=== PATIENT | female | born 1980 | race Caucasian/White ===

== ENCOUNTER 2021-06-10 21:16 | Emergency (ER) | payer SELFPAY ==
[2021-06-10 21:50] VITALS: BP 116/67; PULSE 98; RESP 18; TEMP 38.1; O2SAT 97
[2021-06-10 22:29] LABS: COVID19 -Nasal RAPID Negative (Negative)
[2021-06-10 23:13] LABS: Add Manual Diff / Slide Review NO; Basophils Absolute Auto 0 /uL (0-100); Basophils Percent Auto 0.2 % (0-2); Eosinophils Absolute Auto 0 /uL (0-450); Eosinophils Percent Auto 0.1 % (2-4); Hematocrit 37.8 % (36-46); Hemoglobin 12.8 g/dL (12.0-16.0); Lymphocytes Absolute Auto 600 /uL (1100-4500); Mean Corpuscular HGB Conc 33.7 % (30-36); Mean Corpuscular Hemoglobin 31.5 PG (26-34); Mean Corpuscular Volume 93.3 fL (80-100); Monocytes Absolute Auto 700 /uL (0-900); Monocytes Percent Auto 7.3 % (3-14); Neutrophils Absolute Auto 8100 /uL (1500-7000); Neutrophils Percent Auto 86.4 % (50-75); Platelet Count 236 X10^3/uL (150-400); Red Blood Cell Count 4.05 X10^6/uL (4.0-5.2); Red Cell Distribution Width 13.1 % (11.6-14.8); White Blood Cell Count 9.3 X10^3/uL (4.5-11.0)
[2021-06-10 23:21] LABS: Alanine Aminotransferase 24 IU/L (<35); Albumin 4.4 g/dL (3.5-5.0); Albumin Globulin Ratio 1.3 (1.0-2.8); Alkaline Phosphatase 50 U/L (38-126); BUN Creatinine Ratio 8.6 (6-22); Bilirubin Total 0.7 mg/dL (0.2-1.3); Blood Urea Nitrogen 6 mg/dL (7-17); Calcium 8.9 mg/dL (8.4-10.2); Carbon Dioxide 20 mmol/L (22-32); Chloride 105 mmol/L (98-107); Estimated Glomerular Filt Rate > 60.0 mL/min (>60); Globulin 3.5 g/dL (1.7-4.1); Glucose 115 mg/dL (70-100); Lipase 26 U/L (23-300); Sodium 134 mmol/L (137-145); Total Protein 7.9 g/dL (6.3-8.2)
[2021-06-10 23:27] LABS: HEMOLYSIS 64 (0-50)
[2021-06-10 23:28] LABS: Aspartate Aminotransferase 37 IU/L (14-36); Potassium 4.1 mmol/L (3.4-5.1)
--- NOTE | 2021-06-11 00:14 | ED.ABDPAIN ---
HPI - Abdominal Pain General Chief Complaint: Abdominal Pain Stated Complaint: intestinal pain, had possible ulcer Time Seen by Provider: 06/10/21 23:18 Source: patient Mode of arrival: Ambulatory History of Present Illness HPI narrative: Patient is a 41-year-old female currently not for COVID presenting with diarrhea and nausea. She has been having ongoing abdominal pain she thought to have an ulcer by her primary care provider she was put on Prilosec. However over the last 2-3 days she has had multiple episodes of nonbloody diarrhea. She has been dry heaving unable to keep any liquids down and diffuse abdominal pain. She currently has a low-grade fever. She denies any chest pain shortness of breath or cough. She states no one else is sick. Related Data Previous Rx's Medication Instructions Recorded ondansetron 4 mg disintegrating 4 mg PO Q8H PRN #20 tab 06/11/21 tablet Allergies Allergy/AdvReac Type Severity Reaction Status Date / Time No Known Drug Allergies Allergy Verified 06/11/21 00:32 Review of Systems Review of Systems Narrative: GENERAL: + fever,+ weakness, see HPI HEENT: Denies sinus pain, ear pain, sore throat, difficulty swallowing, neck pain RESPIRATORY: Denies dyspnea, cough, wheezing, hemoptysis, sputum. CARDIOVASCULAR: Denies chest pain, palpitations, orthopnea, edema GASTROINTESTINAL: See HPI : Denies dysuria, frequency, incontinence, hematuria, urinary retention, flank pain. MUSCULOSKELETAL: Denies weakness, joint pain, or bony pain SKIN: No rash, no erythema, no pruritus NEUROLOGIC: Denies weakness, dizziness, headache, numbness, change in speech, confusion PSYCHIATRIC: No concerning psychosocial issues. 12 point review of systems is negative except for those stated above and HPI Patient History Social History Smoking Status: Current some day smoker Smoking Status: Current some day smoker Substance Use Type: does not use Exam Initial Vital Signs Initial Vital Signs: Vital Signs Temperature 100.5 F H 06/10/21 21:50 Pulse Rate 98 H 06/10/21 21:50 Respiratory Rate 18 06/10/21 21:50 Blood Pressure 116/67 06/10/21 21:50 Pulse Oximetry 97 06/10/21 21:50 GENERAL: Alert 41-year-old female appears to not feel well HEENT: Head atraumatic,EOMI, pupils reactive, face symmetric, [moist] mucous membranes CARDIOVASCULAR: Regular rate and rhythm without murmurs, rubs or gallops. RESPIRATORY: Breath sounds equal bilaterally, no wheezes rales or rhonchi. ABDOMEN: Soft, no tenderness no guarding no rebound not distended EXTREMITIES: Normal range of motion, no clubbing or edema. Neurovascularly intact NEUROLOGICAL: Alert and oriented x4.Normal gait and speech. SKIN: Warm, dry, no laceration, no petechiae, no rashes or lesions. Course Orders Ordered: ED Orders 06/10/21 22:00 COVID19 -Nasal swab/Pre-Proc Stat 06/10/21 22:59 EKG-12 Lead Stat 06/10/21 23:05 Complete Blood Count AUTO DIFF Stat Comprehensive Metabolic Panel Stat Lipase Stat 06/11/21 00:13 GI Panel (Film Array) Stat Discontinued Medications Acetaminophen (Acetaminophen 325 Mg Tablet) 650 mg PO NOW ONE Stop: 06/11/21 00:19 Last Admin: 06/11/21 00:34 Dose: 650 mg Documented by: FRACISCO Sodium Chloride (Normal Saline 0.9%) 1,000 mls @ 1,000 mls/hr IV BOLUS ONE Stop: 06/11/21 01:12 Last Infusion: 06/11/21 01:47 Dose: 0 mls/hr Documented by: Admin: 06/11/21 00:32 Dose: 1,000 mls/hr Documented by: FRACISCO Morphine Sulfate (Morphine 2 Mg/Ml Inj) 2 mg IV NOW ONE Stop: 06/11/21 00:14 Last Admin: 06/11/21 00:34 Dose: 2 mg Documented by: FRACISCO Ondansetron HCl (Ondansetron 4 Mg/2 Ml Inj) 4 mg IV NOW ONE Stop: 06/11/21 00:14 Last Admin: 06/11/21 00:34 Dose: 4 mg Documented by: FRACISCO Ondansetron HCl (Ondansetron 4 Mg Odt Prepack) 1 bottle MISC SEEINSTR ONE Stop: 06/11/21 02:03 Last Admin: 06/11/21 02:08 Dose: 1 bottle Documented by: FRACISCO Pantoprazole Sodium (Pantoprazole 40 Mg Vial) 40 mg IV NOW ONE Stop: 06/11/21 00:14 Last Admin: 06/11/21 00:35 Dose: 40 mg Documented by: FRACISCO Vital Signs Vital signs: Vital Signs - 8 hr 06/10/21 21:50 06/11/21 00:34 06/11/21 00:51 Temperature 100.5 F H 100.5 F H Pulse Rate 98 H 83 Respiratory Rate 18 18 Blood Pressure 116/67 97/52 L Pulse Oximetry 97 98 06/11/21 01:46 06/11/21 01:47 Temperature 99.2 F Pulse Rate 76 Respiratory Rate 18 Blood Pressure 94/53 L Pulse Oximetry 98 MDM - Abdominal Pain Lab Data Result diagrams: 06/10/21 23:05 06/10/21 23:05 Labs: Lab Results 06/10/21 06/10/21 06/10/21 Range/Units 22:00 23:05 23:05 WBC 9.3 (4.5-11.0) X10^3/uL RBC 4.05 (4.0-5.2) X10^6/uL Hgb 12.8 (12.0-16.0) g/dL Hct 37.8 (36-46) % MCV 93.3 (80-100) fL MCH 31.5 (26-34) PG MCHC 33.7 (30-36) % RDW 13.1 (11.6-14.8) % Plt Count 236 (150-400) X10^3/uL Neut % (Auto) 86.4 H (50-75) % Lymph % (Auto) 6.0 L (25-40) % [place] % (Auto) 7.3 (3-14) % Eos % (Auto) 0.1 L (2-4) % Baso % (Auto) 0.2 (0-2) % Neut # (Auto) 8100 H (9248-4632) /uL Lymph # (Auto) 600 L (5309-9534) /uL [place] # (Auto) 700 (0-900) /uL Eos # (Auto) 0 (0-450) /uL Baso # (Auto) 0 (0-100) /uL Sodium 134 L (137-145) mmol/L Potassium 4.1 (3.4-5.1) mmol/L Chloride 105 (98-107) mmol/L Carbon Dioxide 20 L (22-32) mmol/L BUN 6 L (7-17) mg/dL Creatinine 0.70 (0.52-1.04) mg/dL Estimated GFR > 60.0 (>60) mL/min BUN/Creatinine Ratio 8.6 (6-22) Glucose 115 H (70-100) mg/dL Calcium 8.9 (8.4-10.2) mg/dL Total Bilirubin 0.7 (0.2-1.3) mg/dL AST 37 H (14-36) IU/L ALT 24 (<35) IU/L Alkaline Phosphatase 50 (38-126) U/L Total Protein 7.9 (6.3-8.2) g/dL Albumin 4.4 (3.5-5.0) g/dL Globulin 3.5 (1.7-4.1) g/dL Albumin/Globulin Ratio 1.3 (1.0-2.8) Lipase 26 (23-300) U/L Stl C. cayetanensis PCR (Not Detect) Stool Rotavirus (PCR) (Not Detect) Stool Adenovirus (PCR) (Not Detect) Stool Astrovirus (PCR) (Not Detect) Stool Cryptosporidium PCR (Not Detect) Stl E.coli Shiga Tox PCR (Not Detect) St Sh/Enteroin Ecoli PCR (Not Detect) Stool E coli O157 PCR Stl Enterotoxigenic E PCR (Not Detect) Stool EPEC (PCR) (Not Detect) Stl E. histolytica PCR (Not Detect) Stool Giardia Lamblia PCR (Not Detect) Stool Sapovirus (PCR) (Not Detect) Stl P. shigelloides PCR (Not Detect) St Y.enterocolitica PCR (Not Detect) Stool Vibrio (PCR) (Not Detect) Stl Vibrio cholerae PCR (Not Detect) Stl Enteroaggr Ecoli PCR (Not Detect) Stl Norovirus GI/GII PCR (Not Detect) Campylobacter (PCR) (Not Detect) C. difficile Tox (PCR) (Not Detect) SARS-CoV-2 (PCR) Negative (Negative) Salmonella (PCR) (Not Detect) 06/10/21 Range/Units 23:35 WBC (4.5-11.0) X10^3/uL RBC (4.0-5.2) X10^6/uL Hgb (12.0-16.0) g/dL Hct (36-46) % MCV (80-100) fL MCH (26-34) PG MCHC (30-36) % RDW (11.6-14.8) % Plt Count (150-400) X10^3/uL Neut % (Auto) (50-75) % Lymph % (Auto) (25-40) % [place] % (Auto) (3-14) % Eos % (Auto) (2-4) % Baso % (Auto) (0-2) % Neut # (Auto) (1663-7436) /uL Lymph # (Auto) (0784-2700) /uL [place] # (Auto) (0-900) /uL Eos # (Auto) (0-450) /uL Baso # (Auto) (0-100) /uL Sodium (137-145) mmol/L Potassium (3.4-5.1) mmol/L Chloride (98-107) mmol/L Carbon Dioxide (22-32) mmol/L BUN (7-17) mg/dL Creatinine (0.52-1.04) mg/dL Estimated GFR (>60) mL/min BUN/Creatinine Ratio (6-22) Glucose (70-100) mg/dL Calcium (8.4-10.2) mg/dL Total Bilirubin (0.2-1.3) mg/dL AST (14-36) IU/L ALT (<35) IU/L Alkaline Phosphatase (38-126) U/L Total Protein (6.3-8.2) g/dL Albumin (3.5-5.0) g/dL Globulin (1.7-4.1) g/dL Albumin/Globulin Ratio (1.0-2.8) Lipase (23-300) U/L Stl C. cayetanensis PCR Not detected (Not Detect) Stool Rotavirus (PCR) Not detected (Not Detect) Stool Adenovirus (PCR) Not detected (Not Detect) Stool Astrovirus (PCR) Not detected (Not Detect) Stool Cryptosporidium PCR Not detected (Not Detect) Stl E.coli Shiga Tox PCR Not detected (Not Detect) St Sh/Enteroin Ecoli PCR Not detected (Not Detect) Stool E coli O157 PCR Not Reportable Stl Enterotoxigenic E PCR Not detected (Not Detect) Stool EPEC (PCR) Not detected (Not Detect) Stl E. histolytica PCR Not detected (Not Detect) Stool Giardia Lamblia PCR Not detected (Not Detect) Stool Sapovirus (PCR) Not detected (Not Detect) Stl P. shigelloides PCR Not detected (Not Detect) St Y.enterocolitica PCR Not detected (Not Detect) Stool Vibrio (PCR) Not detected (Not Detect) Stl Vibrio cholerae PCR Not detected (Not Detect) Stl Enteroaggr Ecoli PCR Not detected (Not Detect) Stl Norovirus GI/GII PCR Not detected (Not Detect) Campylobacter (PCR) Detected H (Not Detect) C. difficile Tox (PCR) Not detected (Not Detect) SARS-CoV-2 (PCR) (Negative) Salmonella (PCR) Not detected (Not Detect) Point of care testing: Point of Care Testing Test Results Negative Urine Dip Bedside Urine Glucose Negative Bedside Urine Bilirubin - Negative Bedside Urine Ketone - Negative Urine Specific [place] 1.005 Bedside Urine Occult Blood - Negative Bedside Urine pH 6.0 Bedside Urine Protein - Negative Bedside Urine Urobilinogen - Negative Bedside Urine Nitrite - Negative Bedside Urine Leukocytes - Negative Esterase MDM Narrative Medical decision making narrative: Patient has had numerous episodes of diarrhea. GI panel does confirm Campylobacter infection. Blood work is overall reassuring she is not significantly dehydrated no leukocytosis. His she is not immunocompromised no significant risk factors. Symptoms have been only ongoing for a few days with low-grade fever. His at this time recommend conservative treatment no antibiotics are indicated. Patient is overall feeling better after 1 L of fluid abdomen remains soft. Nurse discharged patient but does not inform me of low blood pressure. Blood pressure has slowly decreased during her stay. Initial blood pressure 116/67 then vitals are not taken for numerous hours next blood pressure is around 1:00 a.m. and 97/52 followed by 94/53. She did receive 1 dose of morphine 2 mg at around midnight. [place] stay and in [place]. I have discussed with her warning signs and when to return to the ED. I believe that she will follow up if needed. She was not dizzy lightheaded or symptomatic when I evaluated her just prior to discharge. Discharge Plan Departure Patient Disposition: Home Clinical Impression: Campylobacter diarrhea Instructions: Gastroenteritis Diet Activity Restrictions/Additional Instructions: You have been diagnosed with gastroenteritis, specifically Campylobacter This is usually self-limiting disease and you should start to improve. Recommend clear liquid diet which includes Gatorade or Gatorade like substance, broth, Jell-O, he may increase her diet as tolerated. You may take Zofran as prescribed to help with the nausea and keeping fluids down. Please control fever with Tylenol or ibuprofen as prescribed. Please follow-up with primary care provider in 2-3 days Return to emergency department if you are have inability to keep fluids down despite medication, worsening diarrhea, high fever, symptoms lasting more than 7 days or any other new or worsening symptoms Prescriptions: New ondansetron 4 mg tablet,disintegrating 4 mg PO Q8H PRN (Reason: nausea and vomiting) Qty: 20 RF: 0 Referrals: Isabel Velazquez ARNP [Primary Care Provider] -
[2021-06-11] MEDS: SODIUM CHLORIDE 0.9% 1,000 ML 1000 ML IV (00:32)
[2021-06-11 00:34] VITALS: TEMP 38.1
[2021-06-11] MEDS: ONDANSETRON 4 MG/2 ML INJ IV (00:34)
[2021-06-11] MEDS: ACETAMINOPHEN 325 MG TABLET 650 MG PO (00:34)
[2021-06-11] MEDS: MORPHINE 2 MG/ML INJ IV (00:34)
[2021-06-11] MEDS: PANTOPRAZOLE 40 MG VIAL IV (00:35)
[2021-06-11 00:51] VITALS: BP 97/52; PULSE 83; RESP 18; O2SAT 98
[2021-06-11 01:44] LABS: Adenovirus F 40/41 Not Detected (Not Detect); Astrovirus Not Detected (Not Detect); Clostridium difficile toxin AB Not Detected (Not Detect); Cryptosporidium Not Detected (Not Detect); Cyclospora cayetanensis Not Detected (Not Detect); Entamoeba histolytica Not Detected (Not Detect); Enteroaggregative E.coli Not Detected (Not Detect); Enteropathogenic E.coli Not Detected (Not Detect); Enterotoxigenic E.coli It/st Not Detected (Not Detect); Giardia lamblia Not Detected (Not Detect); Norovirus GI/GII Not Detected (Not Detect); Plesiomonsa shigelloides Not Detected (Not Detect); Rotavirus A Not Detected (Not Detect); Salmonella Not Detected (Not Detect); Sapovirus Not Detected (Not Detect); Shiga-like toxin-prod E.coli Not Detected (Not Detect); Shigella/Enteroinvasive E.coli Not Detected (Not Detect); Vibrio Not Detected (Not Detect); Vibrio cholerae Not Detected (Not Detect); Yersinia enterocolitica Not Detected (Not Detect)
[2021-06-11 01:46] VITALS: TEMP 37.3
[2021-06-11 01:47] VITALS: BP 94/53; PULSE 76; RESP 18; O2SAT 98
[2021-06-11] MEDS: ONDANSETRON 4 MG ODT PREPACK 1 BOTTLE MISC (02:08)
[2021-06-11 07:56] LABS: Campylobacter Detected (Not Detect)
== END 2021-06-11 02:11 | disposition home or self-care (01) ==
PROVIDERS: Emergency Provider Emergency Medicine; PCP Nurse Practitioner
DX: A04.5 Campylobacter enteritis (principal); R11.0 Nausea; R10.9 Unspecified abdominal pain; R50.9 Fever, unspecified
CPT/HCPCS: 36415; 80053; 81003; 81025; 83690; 85025; 87507; 87635; 96361; 96374; 96375; 99284; C9803; C9113; J2270; J2405

== ENCOUNTER → 2021-11-30 09:44 | Outpatient (CLI) | payer SELFPAY ==
--- NOTE | 2021-11-30 | DI.US.S_ITS ---
PROCEDURE: US ABDOMEN LIMITED INDICATIONS: ABDOMINAL PAIN WITH EATING TECHNIQUE: Real-time scanning was performed of the abdominal and retroperitoneal organs, with image documentation. COMPARISON: None. FINDINGS: Liver: Liver is normal in size and homogeneous in echotexture. Gallbladder: Within normal limits. No shadowing gallstones. Biliary ducts: Intrahepatic bile ducts are non-dilated. Extrahepatic bile duct caliber measures 2.4 mm. Normal is 6-7 mm or less in diameter, or 10 mm or less post-cholecystectomy. Pancreas: Visualized portions of the pancreas are sonographically normal. Miscellaneous: No free abdominal fluid. IMPRESSION: No significant abnormality. Dictated by: Ryan Escobar M.D. on 11/30/2021 at 10:46 Approved by: Ryan Escobar M.D. on 11/30/2021 at 10:47
== END ==
PROVIDERS: PCP Nurse Practitioner; Referring Provider Nurse Practitioner; Visit Provider Nurse Practitioner
DX: R10.10 Upper abdominal pain, unspecified (principal); K80.80 Other cholelithiasis without obstruction
CPT/HCPCS: 76705